=== PATIENT | male | born 1930 | race Two or more races ===

== ENCOUNTER 2021-03-23 21:16 | Inpatient (IN) | payer MEDICARE, OTHER ==
[~2021-03-23] VITALS: Ht 162.6 cm; Wt 72.6 kg
--- NOTE | 2021-03-23 21:20 | NUR ---
PT AAOX4. BIBRA 93 FROM HOME FOR C/O WORSENING SOB SINCE PM. PER EMS SATTING 88% ON RA, UPON TRIAGE, PT WAS PLACED ON CPAP. PT THEN WAS PLACED ON 6L NC, SAT 100%. NO ACUTE DISTRESS NOTED. LINE ESTABLISHED RAC 18G, BLOOD WORK COLLECTED, SENT TO LAB. AWAITING ORDERS.
[2021-03-23 21:43] LABS: BASOPHILS % (AUTO) 0.2 % (0.0-2.0); HEMATOCRIT 29 % (39-51); HEMOGLOBIN 8.9 g/dL (13.5-17.5); LYMPHOCYTES # (AUTO) 0.4 K/uL (0.8-4.8); MEAN CORPUSCULAR HGB CONC 30 g/dl (31.0-36.0); MEAN CORPUSCULAR VOLUME 76 fL (80-96); MONOCYTES # (AUTO) 1.1 K/uL (0.1-1.30); MONOCYTES % (AUTO) 4.8 % (2.0-12.0); NEUTROPHILS # (AUTO) 20.4 K/uL (1.8-8.9); PLATELET COUNT (AUTO) 270 K/uL (150-450); RED BLOOD CELL COUNT(AUTO) 3.85 MIL/uL (4.5-6.0)
[2021-03-23 21:53] LABS: CALCIUM, SERUM 8.2 mg/dL (8.5-10.1); CARBON DIOXIDE 30 mmol/L (21-32); CHLORIDE 100 mmol/L (98-107); CREATININE 1.8 mg/dL (0.6-1.3); GLUCOSE 153 mg/dL (74-106); POTASSIUM 4.3 mmol/L (3.5-5.1); SODIUM SERUM 136 mmol/L (136-145); UREA NITROGEN, BLOOD 22 mg/dL (7-18)
--- NOTE | 2021-03-23 22:08 | NUR ---
TROP 2.390
--- NOTE | 2021-03-23 22:19 | NUR ---
CALLED FOR COVID SWAB
--- NOTE | 2021-03-23 22:29 | NUR ---
[facility] SWAB COLLECTED AND SENT TO LAB. PATIENT'S BELONGINGS LIST DONE.
[2021-03-23] MEDS ORDERED: CEFEPIME 1 GM in IV D5W 50 ML IV ONE (22:30)
[2021-03-23] MEDS ORDERED: VANCOMYCIN 1 GM in IV D5W 250 ML IV ONE (22:30)
[2021-03-23] MEDS ORDERED: VANCOMYCIN 1 GM VIAL ONE (22:33)
[2021-03-23] MEDS ORDERED: CEFEPIME 1 GM VIAL ONE (22:33)
--- NOTE | 2021-03-23 22:37 | NUR ---
SPOKE TO PT, STATED HE IS UNABLE TO PROVIDE URINE SAMPLE AT THIS TIME.
--- NOTE | 2021-03-23 23:38 | NUR ---
SPOKE TO THE AND UPDATED HER REGARDING PT'D CONDITON AND ADMISSION STATUS
[2021-03-24 00:07] LABS: BAND % (MANUAL) 1 % (0.0-5.0); LYMPHOCYTES % (MANUAL) 3 % (16-48); METAMYELOCYTES % 1 % (0-0); NEUTROPHILS % (MANUAL) 95 (42-76)
[2021-03-24] MEDS ORDERED: MAGNESIUM HYDROXIDE 30 ML UDC PO PRN (00:30)
[2021-03-24] MEDS ORDERED: ONDANSETRON HCL/PF 4 MG/2 ML VIAL IVP PRN (00:30)
[2021-03-24] MEDS ORDERED: ACETAMINOPHEN 325 MG TABLET PO PRN (00:30)
[2021-03-24] MEDS ORDERED: MAG HYDROX/AL HYDROX/SIMETH 30 ML UDC PO PRN (00:30)
[2021-03-24] MEDS ORDERED: Z GUARD REMEDY 2 OZ OINT TP PRN (00:30)
[2021-03-24] MEDS ORDERED: ZOLPIDEM TARTRATE 5 MG TABLET PO PRN (00:30)
[2021-03-24] MEDS ORDERED: CEFTRIAXONE 1 G in IV D5W 50 ML IV SCH (01:00)
--- NOTE | 2021-03-24 02:07 | NUR ---
REPORT GIVEN TO YURIY ARZATE FOR KENNY
--- NOTE | 2021-03-24 02:40 | NUR ---
ADMIT NOTE RECEIVED PATIENT FROM ER, TRANSFERRED TO ROOM 116-1. PATIENT IS ALERT AND ORIENTED X3, ARABIC SPEAKING ONLY. ON O2 6L VIA NASAL CANNULA, O2 SAT 100%. NOTED WITH CONGESTION, CRACKLES HEARD UPON AUSCULTATION. DENIES ANY PAIN. SKIN ASSESSMENT DONE, NOTED WITH SACRUM REDNESS. IV ACCESS ON RIGHT AC #18, PATENT AND INTACT. ORIENTED PATIENT TO ROOM AND CALL LIGHT. BED LOCKED AND IN LOWEST POSITION. CALL LIGHT WITHIN REACH. ALL NEEDS ANTICIPATED.
--- NOTE | 2021-03-24 02:50 | NUR ---
PT TRANSFERED PER ACLS PROTOCOL
[2021-03-24 03:37] LABS: BASOPHILS % (AUTO) 0.2 % (0.0-2.0); HEMATOCRIT 27 % (39-51); HEMOGLOBIN 8.4 g/dL (13.5-17.5); LYMPHOCYTES # (AUTO) 0.4 K/uL (0.8-4.8); MEAN CORPUSCULAR HGB CONC 31 g/dl (31.0-36.0); MEAN CORPUSCULAR VOLUME 77 fL (80-96); MONOCYTES # (AUTO) 1.2 K/uL (0.1-1.30); MONOCYTES % (AUTO) 6.2 % (2.0-12.0); NEUTROPHILS # (AUTO) 18.2 K/uL (1.8-8.9); NEUTROPHILS % (AUTO) 91.6 % (43.0-81.0); PLATELET COUNT (AUTO) 235 K/uL (150-450); RED BLOOD CELL COUNT(AUTO) 3.54 MIL/uL (4.5-6.0); WHITE BLOOD COUNT (AUTO) 19.9 K/uL (4.3-11.0)
[2021-03-24 03:41] LABS: CARBON DIOXIDE 30 mmol/L (21-32); CHLORIDE 102 mmol/L (98-107); CREATININE 1.9 mg/dL (0.6-1.3); GLUCOSE 122 mg/dL (74-106); MAGNESIUM 2.2 mg/dL (1.8-2.4); PHOSPHORUS 4.1 mg/dL (2.5-4.9); POTASSIUM 4.6 mmol/L (3.5-5.1); SODIUM SERUM 138 mmol/L (136-145); UREA NITROGEN, BLOOD 25 mg/dL (7-18)
[2021-03-24 04:00] VITALS: BP 105/50
[2021-03-24] MEDS ORDERED: CEFTRIAXONE 1 G VIAL ONE (04:01)
--- NOTE | 2021-03-24 04:27 | NUR ---
RN NOTE RECEIVED CALL FROM LAB, TROPONIN LVL 3.813. SPOKE AND NOTIFIED DR. RASHEED SIMONS WITH NEW ORDERS NOTED AND CARRIED OUT.
[2021-03-24] MEDS ORDERED: ENOXAPARIN SODIUM 40 MG/0.4 ML DISP.SYRIN SQ ONE (04:30)
--- NOTE | 2021-03-24 06:56 | NUR ---
RN NOTE PATIENT IS RESTING IN BED. ON O2 6L VIA NASAL CANNULA, O2 SAT 97%. IV ACCESS ON RIGHT AC #18, PATENT AND INTACT. KEPT PATIENT CLEAN, DRY, AND COMFORTABLE. BED LOCKED AND IN LOWEST POSITION. CALL LIGHT WITHIN REACH. WILL ENDORSE TO AM SHIFT.
--- NOTE | 2021-03-24 07:39 | NUR ---
RN MORNING NOTE PT RECEIVED IN BED WITH HOB ELEVATED TO 30 DEGREES. PT IS ON 6L NC SATING 100% WITH NO SIGNS OF LABORED BREATHING OR RESPIRATORY DISTRESS. PT IS A/OX3. PT IS SR WITH OCC PVCS AND ON MONITOR. R AC #18 IS PATENT AND INTACT WITH NO SIGNS OF INFILTRATION. BED IS LOCKED IN LOWEST POSITION X2 GUARD RAILS UP, CALL LEON WITHIN REACH, AND ALL HOSPITAL SAFETY PRECAUTIONS ARE IN PLACE. WILL CONTINUE TO MONITOR THROUGHOUT SHIFT.
[2021-03-24 08:00] VITALS: BP 113/52
[2021-03-24] MEDS ORDERED: FUROSEMIDE 40 MG/4 ML VIAL IV SCH (09:00)
[2021-03-24] MEDS ORDERED: AZITHROMYCIN 500 MG in IV D5W 250 ML IV ONE (09:00)
[2021-03-24] MEDS: FUROSEMIDE 40 MG/4 ML VIAL IV SCH ×3 (09:08→17:21)
--- NOTE | 2021-03-24 10:11 | NUR ---
RN NOTE PER PHARMACY ROUND UP INITIAL DOSE AND STARTING RATE. CHANGED ON DOCUMENTATION. WITNESSED BY CHARGE NURSE.
[2021-03-24] MEDS ORDERED: HEPARIN SODIUM, PORCINE 5000 UNITS/1 ML VIAL IV ONE (10:30)
[2021-03-24 10:43] LABS: THYROID STIMULATING HORMONE 0.856 uIU/mL (0.358-3.74)
[2021-03-24] MEDS: HEPARIN INFUSION/D5W 500 ML IV PRN (11:14)
[2021-03-24] MEDS ORDERED: DULA1.5P SQ (11:24)
[2021-03-24] MEDS ORDERED: SIMV-49 PO (11:24)
[2021-03-24] MEDS ORDERED: EMPA25TA PO (11:24)
[2021-03-24] MEDS ORDERED: FURO40TA5 PO (11:24)
[2021-03-24] MEDS ORDERED: CHOL100062 PO (11:25)
[2021-03-24] MEDS ORDERED: ESCI10TA PO (11:25)
[2021-03-24] MEDS ORDERED: CLOP75TA15 PO (11:25)
[2021-03-24] MEDS ORDERED: TAMS-12 PO (11:25)
[2021-03-24] MEDS ORDERED: NILO150C PO (11:25)
[2021-03-24] MEDS ORDERED: METO25TA4 PO (11:25)
[2021-03-24] MEDS ORDERED: LINA290C PO (11:25)
[2021-03-24] MEDS ORDERED: AMLO2.5T4 PO (11:25)
[2021-03-24 12:00] VITALS: BP 102/63
[2021-03-24] MEDS: BLOOD SUGAR DIAGNOSTIC 1 EACH STRIP IN SCH ×3 (12:00→22:33)
[2021-03-24] MEDS ORDERED: DEXTROSE 50%-WATER 50 ML DISP.SYRIN IV PRN (12:00)
[2021-03-24] MEDS: INSULIN REGULAR, HUMAN 100 UNIT/ML 3 ML VIAL SQ PRN ×3 (13:05→22:44)
--- NOTE | 2021-03-24 13:06 | NUR ---
RN NOTE BLOOD SUGAR TAKEN WITH RESULTS OF 123. NO INSULIN NEEDED PER SLIDING SCALE. WILL CONTINUE TO MONITOR.
[2021-03-24] MEDS: [UNRECOGNIZED DRUG - OTHER] PO SCH ×2 (14:30→22:33)
[2021-03-24] MEDS: LINZESS 290 MCG PO SCH (14:30)
[2021-03-24 16:00] VITALS: BP 118/46
[2021-03-24] MEDS: SIMVASTATIN 20 MG TABLET PO SCH (17:21)
[2021-03-24] MEDS: TAMSULOSIN 0.4 MG CAP.SR.24H PO SCH (17:21)
--- NOTE | 2021-03-24 17:37 | NUR ---
RN NOTE BLOOD SUGAR TAKEN WITH RESULTS OF 119. NO INSULIN NEEDED PER SLIDING SCALE. WILL CONTINUE TO MONITOR.
--- NOTE | 2021-03-24 18:00 | NUR ---
RN NOTES; PTT REPORTED BY LABS TO BE 87. PER PROTOCAL HOLD HEPARIN INFUSION FOR 30MIN AND DECREASE RATE BY 150UNITS. NEW RATE WILL BE 1000U/HR to be restarted at 1830. WILL CONTINUE TO MONITOR.
--- NOTE | 2021-03-24 18:32 | NUR ---
RN CLOSING NOTE PT IS LYING IN BED WITH HOB ELEVATED TO 30 DEGREES. PT IS ON 6L NC SATING 98% WITH NO SIGNS OF LABORED BREATHING OR RESPIRATORY DISTRESS. PT IS A/OX3. PT IS SR WITH OCC PVCS AND ON MONITOR. R AC #18, GUERO 18G MIDLINE, IS PATENT AND INTACT WITH NO SIGNS OF INFILTRATION. PATIENT ON HEP DRIP AT 1,000 UNITS/HR 20ML/HR. PTT ORDERED FOR 03/25/21 0030. BED IS LOCKED IN LOWEST POSITION X2 GUARD RAILS UP, CALL LEON WITHIN REACH, AND ALL HOSPITAL SAFETY PRECAUTIONS ARE IN PLACE. WILL ENDORSE TO BRANCH LIBRARY CLERK NURSE FOR KENNY.
--- NOTE | 2021-03-24 19:30 | NUR ---
RN NOTE RECEIVED PATIENT IN BED. A/OX3, FARSI SPEAKING, ABLE TO MAKE BASIC NEEDS KNOWN. ON OXYGEN 6L/MIN VIA NASAL CANNULA. RESPIRATIONS ARE EVEN AND UNLABORED . NO S/S SOB NOTED. NO C/O PAIN. EXTERNAL TELE MONITOR READS SINUS RHYTHM. IN NO APPARENT DISTRESS. IV ACCESS IN RAC#18 AND GUERO MIDLINE RUNNING HEPARIN 1000 UNITS. BED IS LOW AND LOCKED, HOB ELEVATED IN SEMI FOWLERS, SIDE RAILS UP X2, CALL LIGHT WITHIN REACH.
[2021-03-24 19:35] LABS: BILIRUBIN,URINE NEGATIVE (NEGATIVE); COLOR,URINE YELLOW (YELLOW); LEUKOCYTE ESTERASE ,URINE NEGATIVE (NEGATIVE); NITRITE, URINE NEGATIVE (NEGATIVE); PROTEIN,URINE TRACE mg/dl (NEGATIVE); UGLUCOSE >=1000 mg/dL (NEGATIVE); UROBILINOGEN,URINE 0.2 EU/dL (0.2)
[2021-03-24 19:52] LABS: BACTERIA,URINE Rare /HPF (None Seen); HYALINE CASTS, URINE Few /LPF (None Seen); RBC,URINE 0-2 /HPF (0-2); SQUAMOUS EPITHELIAL CELL,UR Few /HPF (None Seen); WBC,URINE 0-2 /HPF (0-3)
[2021-03-24 19:56] LABS: CREATININE, URINE 71.7 MG/DL (30.0-125.0); URINE TOTAL PROTEIN 46.4 mg/dL (0-11.9)
[2021-03-24 20:00] VITALS: BP 109/54
[2021-03-24] MEDS: DOXYCYCLINE HYCLATE (100 MG) 100 MG TABLET PO SCH (22:33)
[2021-03-24] MEDS: CEFEPIME 1 GM in IV D5W 50 ML IV SCH (22:53)
--- NOTE | 2021-03-24 23:38 | NUR ---
RN NOTE INFORMED CHILD CARE SPECIALIST DR. MOHAMUD PATIENT REMOVED BOTH IV SITES. PATIENT IS ON A HEPARIN DRIP. OBTAINED TELEPHONE ORDER FOR BILATERAL SOFT WRIST RESTRAINTS. ORDER READ BACK NOTED AND CARRIED OUT.
[2021-03-25 04:00] VITALS: BP 106/46
--- NOTE | 2021-03-25 04:37 | NUR ---
RN NOTES, INFORMED DOCTOR ESTHELA THAT PATIENT SOUNDS CONGESTED WITH CRACKLES UPON AUSCULTATION, IF IS OK TO GIVE THE BLOOD HE ORDERED, AND PER HIM TO HOLD THE BLOOD FOR NOW AND GIVE LASIX 40MG IV ONCE, ORDER NOTED AND CARRIED OUT. Addendum: 03/25/21 at 1704 by RICARDA VELEZ RN WRONG TIME DOCUMENTATION
--- NOTE | 2021-03-25 06:21 | NUR ---
RN NOTE PATIENT RESTING IN BED. ATTENDED BASIC NEEDS. REMAINS ON OXYGEN 6L/MIN VIA NASAL CANNULA. NO PAIN. TELE MONITOR READS SINUS RHYTHM. LFA#20 RUNNING HEPARIN 1000 UNITS, RAC #20 SALINE LOCKED. BED REMAINS LOW AND LOCKED, HOB ELEVATED IN SEMI FOWLERS, SIDE RAILS UP X2, CALL LIGHT WITHIN REACH. WILL ENDORSE TO NEXT SHIFT.
[2021-03-25 06:45] LABS: BASOPHILS % (AUTO) 0.2 % (0.0-2.0); HEMATOCRIT 25 % (39-51); HEMOGLOBIN 7.8 g/dL (13.5-17.5); LYMPHOCYTES # (AUTO) 0.2 K/uL (0.8-4.8); LYMPHOCYTES % (AUTO) 0.8 % (20.0-44.0); MEAN CORPUSCULAR HGB CONC 31 g/dl (31.0-36.0); MEAN CORPUSCULAR VOLUME 78 fL (80-96); MONOCYTES # (AUTO) 1.1 K/uL (0.1-1.30); MONOCYTES % (AUTO) 5.7 % (2.0-12.0); NEUTROPHILS # (AUTO) 17.7 K/uL (1.8-8.9); NEUTROPHILS % (AUTO) 93.3 % (43.0-81.0); PLATELET COUNT (AUTO) 183 K/uL (150-450); RED BLOOD CELL COUNT(AUTO) 3.22 MIL/uL (4.5-6.0)
[2021-03-25 06:56] LABS: ALANINE AMINOTRANSFERASE 18 U/L (12-78); ALBUMIN 2.5 g/dL (3.4-5.0); ALKALINE PHOSPHATASE 76 U/L (46-116); ASPARTATE AMINOTRANSFERASE 37 U/L (15-37); BILIRUBIN,TOTAL 0.3 mg/dL (0.2-1.0); CALCIUM, SERUM 7.7 mg/dL (8.5-10.1); CARBON DIOXIDE 30 mmol/L (21-32); CHLORIDE 95 mmol/L (98-107); CREATININE 2.3 mg/dL (0.6-1.3); GLUCOSE 255 mg/dL (74-106); MAGNESIUM 2.5 mg/dL (1.8-2.4); POTASSIUM 4.3 mmol/L (3.5-5.1); SODIUM SERUM 136 mmol/L (136-145); UREA NITROGEN, BLOOD 40 mg/dL (7-18)
[2021-03-25] MEDS: BLOOD SUGAR DIAGNOSTIC 1 EACH STRIP IN SCH ×4 (07:52→21:41)
--- NOTE | 2021-03-25 08:03 | NUR ---
NURSE OPENING NOTE. RECEIVE REPORT FROM SECURE SOFTWARE ASSESSOR NURSE. PATIENT A/O X3. PATIENT AMBULATORY WITH ASSISTANCE. PULL OUT IV LAST NIGHT. WILL FOLLOW UP URINE CULTURE AND BLOOD CULTURE. PATIENT IS ON HEPARIN DRIPS. AFETY MEASURE IN PLACE. BED ON THE LOWEST POSITION WITH HOB ELEVATED. CALL LIGHT WITHIN REACH. WILL CONTINUE TO MONITOR.
[2021-03-25 09:29] VITALS: BP 112/45
[2021-03-25] MEDS: CEFEPIME 1 GM in IV D5W 50 ML IV SCH ×2 (09:31→20:51)
[2021-03-25] MEDS: LINZESS 290 MCG PO SCH (09:32)
[2021-03-25] MEDS: DOXYCYCLINE HYCLATE (100 MG) 100 MG TABLET PO SCH ×2 (09:32→21:29)
[2021-03-25] MEDS: TAMSULOSIN 0.4 MG CAP.SR.24H PO SCH ×2 (09:32→17:23)
[2021-03-25] MEDS: CHOLECALCIFEROL 1,000 UNIT TABLET (VIT D3) PO SCH (09:32)
[2021-03-25] MEDS: ESCITALOPRAM OXALATE (10 MG) 10 MG TABLET PO SCH (09:32)
[2021-03-25] MEDS: AZITHROMYCIN 250 MG TABLET PO SCH (09:32)
[2021-03-25] MEDS: CLOPIDOGREL BISULFATE 75 MG TABLET PO SCH (09:32)
[2021-03-25] MEDS: AMLODIPINE BESYLATE 2.5 MG TABLET PO SCH (09:33)
[2021-03-25] MEDS: METOPROLOL SUCCINATE 25 MG TAB.SR.24H PO SCH (09:33)
[2021-03-25] MEDS: INSULIN REGULAR, HUMAN 100 UNIT/ML 3 ML VIAL SQ PRN ×4 (09:38→21:43)
--- NOTE | 2021-03-25 09:52 | NUR ---
REDRAW RESULT PTT 41.7 INCREASED RATE BY 150 UNITS PER PROTOCOL,NEW RATE 1150 UNITS/HR PER BRAD FABRIC PATTERN GRADER.
--- NOTE | 2021-03-25 10:00 | NUR ---
RN NOTES, PATIENT ENDORSED FROM LALITA ARZATE FOR CONTINUATION OF CARE, PATIENT ON HEPARIN DRIP, JUST STARTED AT THIS TIME AFTER APTT RESULTS, PATIENT A/O TO SELF, NO DISTRESS NOTED AT THIS TIME, ON BILATERAL SOFT WRIST RESTRAINS, NO ABNORMALITY NOTED AT SITE, NO CIRCULATION COMPROMISED.
--- NOTE | 2021-03-25 10:05 | NUR ---
PER PHARMACIST MICKIE KEEP ON SAME RATE 1000UNITS SINCE REDRAW OF PTT WAS DONE WHLE HEPARIN ON HOLD.CURRENT RATE NOW OF HEPARIN 1000UNITS/HOUR BRAD SENIOR SEARCH MARKETING ANALYST MADE AWARE.
--- NOTE | 2021-03-25 11:01 | NUR ---
RN NOTES, NOTED PATIENT COUGHING WHILE EATING, SWALLOW EVAL PLACED, PER SPEECH THERAPIST WILL PUT PATIENT ON PUREED DIET FOR NOW, SHE WILL ASSESS PATIENT TOMORROW, STRICT ASPIRATION PRECAUTIONS, WILL CONTINUE TO MONITOR CLOSELY.
--- NOTE | 2021-03-25 11:30 | NUR ---
SPOKE WITH SON FOR UPDATE, PER SON HE IS VERY CONCERNED BECAUSE HIS DAD HAD A CONDITION ABOUT 2 YEARS AGO WHERE HE HAD FLUID IN THE CARDIAC CAVITY, AND HE THINKS THAT HIS DAD HAS THE SAME CONDITION AGAIN, INFORMED BRAD AND THAT SON WANTS TO TALK TO HIM, PER BRAD DIOR, HE WILL CALL THE SON
[2021-03-25] MEDS: [UNRECOGNIZED DRUG - OTHER] PO SCH ×2 (11:43→21:29)
[2021-03-25 12:00] VITALS: BP 112/52
[2021-03-25] MEDS: HEPARIN INFUSION/D5W 500 ML IV PRN (12:41)
[2021-03-25 16:00] VITALS: BP 106/43
--- NOTE | 2021-03-25 16:37 | NUR ---
RN NOTES, INFORMED DOCTOR ESTHELA THAT PATIENT SOUNDS CONGESTED WITH CRACKLES UPON AUSCULTATION, IF IS OK TO GIVE THE BLOOD HE ORDERED, AND PER HIM TO HOLD THE BLOOD FOR NOW AND GIVE LASIX 40MG IV ONCE, AND GET ADVICE FROM MANAGER STERILE, ORDER NOTED AND CARRIED OUT.
--- NOTE | 2021-03-25 16:49 | NUR ---
RN NOTES, INFORMED DR GARNER THAT PER SCAN PATIENT IS RETAINING 400ML OF URINE, AND INFORMED THAT PER DR PROCTOR ORDERS TO HOLD BLOOD, GIVE LASIX, AND GET NEPHRO ADVICE PER PASCUAL INSERT CAMPBELL AND GIVE LASIX 40MG IV ONCE, ALL ORDERS NOTED AND CARRIED OUT.
[2021-03-25] MEDS ORDERED: FUROSEMIDE 40 MG/4 ML VIAL IV ONE (17:00)
--- NOTE | 2021-03-25 17:11 | NUR ---
PTT 43.9 INCREASE BY 150 UNITS PER PROTOCOL,NEW RATE 1150 UNITS /HR,PHARMACIST MADE AWARE.
[2021-03-25] MEDS: CALCIUM ACETATE 667 MG CAP/TAB PO SCH (17:23)
[2021-03-25] MEDS: SIMVASTATIN 20 MG TABLET PO SCH (17:23)
--- NOTE | 2021-03-25 18:55 | NUR ---
RN NOTES CAMPBELL INSERTED PER ORDER OF DR. GARNER. INITIAL OUTPUT: 600ML
[2021-03-25] MEDS ORDERED: NS 0.9% IV PRN (19:00)
[2021-03-25] MEDS ORDERED: FUROSEMIDE IV PRN (19:00)
--- NOTE | 2021-03-25 19:30 | NUR ---
RN OPENING NOTE RECEIVED PATIENT IN BED. A/OX3, FARSI SPEAKING, LANGUAGE BARRIER. ON OXYGEN 6L/MIN VIA NASAL CANNULA. RESPIRATION ARE SLIGHTLY LABORED. NO S/S PAIN NOTED. EXTERNAL TELE MONITOR READS SINUS RHYTHM. IV ACCESS IN BARTOLO MIDLINE, LFA#20 RUNNING HEPARIN @1150UNITS/HR. RAC#20 SALINE LOCKED. CAMPBELL CATHETER IS PRESENT, DRAINING TO GRAVITY. BILATERAL SOFT WRIST RESTRAINTS, NO REDNESS, GOOD CAP REFILL. BED IS LOW AND LOCKED, HOB ELEVATED IN HIGH FOWLERS, SIDE RIAL SUP X2, CALL LIGHT WITHIN REACH.
--- NOTE | 2021-03-25 19:37 | NUR ---
RN CLOSING NOTE PT LYING IN BED. PT A/O X3. PT HAS SOFT WRIST RESTRAINTS. BARTOLO MIDLINE 18G INSERTED TODAY. PT IS ON HEPARIN DRIP INFUSING INTO MIDLINE. PRBC HELD PER DR. PROCTOR. PER DR. GARNER ONE TIME 40MG LASIX GIVEN AND CAMPBELL INSERTED. APTT CHECK SCHEDULED FOR 2300. SAFETY MEASURE IN PLACE. BED ON THE LOWEST POSITION WITH HOB ELEVATED HIGH FOWLERS. CALL LIGHT WITHIN REACH. WILL ENDORSE TO LIGHTNING ROD INSTALLER NURSE FOR CONTINUITY OF CARE.
--- NOTE | 2021-03-25 19:46 | NUR ---
RN NOTE CALLED SON BRAD [phone] TO INFORM HIM THAT PHARMACY IS REQUESTING HOME MEDS TO BE DELIVERED, TASINGA AND LINESS. SON STATED HE WILL BRING TOMORROW MORNING. SON ALSO ASKED ABOUT VISITING HOURS AND INFORMED HIM THE PRC IS STILL PENDING.
[2021-03-25 20:00] VITALS: BP 100/44
[2021-03-25] MEDS ORDERED: FUROSEMIDE 100 MG in IV NS 0.9% 90 ML IV PRN (20:00)
--- NOTE | 2021-03-25 20:23 | NUR ---
RN NOTE RECEIVED A CALL FROM DAUGHTER, GAVE AN UPDATE. FAMILY REQUEST PHONE IN ROOM. WILL PLACE PHONE IN ROOM, WILL TRY TO CALL IN 2 HOURS. DAUGHTER ASKED ABOUT VISITING, INFORMED HER THE PCR IS STILL PENDING.
--- NOTE | 2021-03-25 23:30 | NUR ---
RN NOTE NURSE OBGYN AT BEDSIDE TO OBTAIN PTT, STATES PATIENT IS A HARD STICK. UNABLE TO GET BLOOD. STATES SHE IS THE ONLY NURSE OBGYN AT THIS TIME. ASKED TO MATERIALS TO DRAW BLOOD. CHARGE NURSE INFORMED.
[2021-03-26] VITALS (17 sets, daily range): BP systolic 81–121; BP diastolic 34–71
--- NOTE | 2021-03-26 | NUR ---
RN NOTE AT BEDSIDE WITH CHARGE NURSE ZEHRA TO DRAW PTT. BLOOD TAKEN TO LAB, AWAITING RESULTS.
--- NOTE | 2021-03-26 01:00 | NUR ---
RN NOTE PTT IS 37.9. PER WEIGHT BASED HEPARIN DOSING ORDER FOR ACUTE CORONARY SYNDROME / AMI FORM,INCREASE BY 150 UNITS PER HOUR. DOSE NOW 1300UNITS PER HOUR. WILL REASSESS PTT IN 6 HOURS.
--- NOTE | 2021-03-26 06:21 | NUR ---
RN CLOSING NOTE PATIENT RESTING IN BED. BASIC NEEDS MET. REMAINS ON OXYGEN 6L/MIN VIA NASAL CANNULA. EPISODES OF SOB. TELE MONITOR IS SINUS RHYTHM. BARTOLO MIDLINE RUNNING LASIX @5MG/HR, LFA#20 RUNNING HEPARIN @1150UNITS/HR. RAC#20 AND RIGHT WRIST#20 SALINE LOCKED. CAMPBELL CATHETER DRAINING TO GRAVITY, URINE IS YELLOW OUTPUT 650ML. BILATERAL SOFT WRIST RESTRAINTS MAINTAINED, NO REDNESS. BED REMAINS LOW AND LOCKED, HOB ELEVATED IN HIGH FOWLERS, SIDE RIALS UP X2, CALL LIGHT WITHIN REACH. WILL ENDORSE TO ONCOMING SHIFT.
--- NOTE | 2021-03-26 07:35 | NUR ---
MILITARY LAWYER NOTE RECEIVED PT IN BED ON 6L NC, HEPARIN RUNNING AT 1150UNITS/HR IN THE L FA 20G, LASIX @5MG/HR IN THE BARTOLO ML. PT ALSO HAS A R AC 20 G SALINE LOCK, FLUSHED PATENT WITH DRESSING IN TACT. PTS R FA 20 G IS OCCLUDED. WILL REMOVE AND COVER WITH DRY DRESSING. PT HAS SOFT WRIST RESTRAINTS TO REFRAIN FROM PULLING LINES AND REMOVING OXYGEN. SAFETY MEASURES IN PLACE WITH BED IN LOWEST LOCKED POSITION, CALL LIGHT WITHIN REACH AND BED ALARM ON.
[2021-03-26] MEDS: BLOOD SUGAR DIAGNOSTIC 1 EACH STRIP IN SCH ×4 (07:41→22:16)
[2021-03-26] MEDS: CALCIUM ACETATE 667 MG CAP/TAB PO SCH ×3 (07:42→18:00)
[2021-03-26] MEDS: INSULIN REGULAR, HUMAN 100 UNIT/ML 3 ML VIAL SQ PRN ×4 (07:46→22:24)
[2021-03-26 07:54] LABS: CALCIUM, SERUM 8.2 mg/dL (8.5-10.1); CARBON DIOXIDE 23 mmol/L (21-32); CHLORIDE 96 mmol/L (98-107); CREATININE 3.1 mg/dL (0.6-1.3); GLUCOSE 151 mg/dL (74-106); POTASSIUM 4.4 mmol/L (3.5-5.1); SODIUM SERUM 134 mmol/L (136-145); UREA NITROGEN, BLOOD 65 mg/dL (7-18)
--- NOTE | 2021-03-26 08:30 | NUR ---
SILVER MINER NOTE PT EVALUATED BY SPEECH THERAPY, NOTING SOME DIFFICULTY SWALLOWING THIN LIQUIDS WELL TROUBLE CLEARING SECRETIONS. ASPIRATION PRECAUTIONS OBSERVED, KEEPING HOB ELEVATED HIGH TOLERATED DURING MEALS AND MEDICATION ADMINISTRATION.
[2021-03-26 08:36] LABS: BASOPHILS % (AUTO) 0.1 % (0.0-2.0); HEMATOCRIT 24 % (39-51); HEMOGLOBIN 7.3 g/dL (13.5-17.5); LYMPHOCYTES # (AUTO) 0.9 K/uL (0.8-4.8); LYMPHOCYTES % (AUTO) 6.4 % (20.0-44.0); MEAN CORPUSCULAR HGB CONC 31 g/dl (31.0-36.0); MEAN CORPUSCULAR VOLUME 77 fL (80-96); MONOCYTES # (AUTO) 0.7 K/uL (0.1-1.30); MONOCYTES % (AUTO) 5.1 % (2.0-12.0); NEUTROPHILS # (AUTO) 12.4 K/uL (1.8-8.9); NEUTROPHILS % (AUTO) 88.4 % (43.0-81.0); PLATELET COUNT (AUTO) 169 K/uL (150-450); RED BLOOD CELL COUNT(AUTO) 3.09 MIL/uL (4.5-6.0)
[2021-03-26] MEDS: LINZESS 290 MCG PO SCH (08:52)
[2021-03-26] MEDS: DOXYCYCLINE HYCLATE (100 MG) 100 MG TABLET PO SCH ×2 (08:53→21:00)
[2021-03-26] MEDS: AZITHROMYCIN 250 MG TABLET PO SCH (08:53)
[2021-03-26] MEDS: ESCITALOPRAM OXALATE (10 MG) 10 MG TABLET PO SCH (08:53)
[2021-03-26] MEDS: METOPROLOL SUCCINATE 25 MG TAB.SR.24H PO SCH (08:53)
[2021-03-26] MEDS: CLOPIDOGREL BISULFATE 75 MG TABLET PO SCH (08:53)
[2021-03-26] MEDS: TAMSULOSIN 0.4 MG CAP.SR.24H PO SCH ×2 (08:53→18:00)
[2021-03-26] MEDS: CEFEPIME 1 GM in IV D5W 50 ML IV SCH (08:53)
[2021-03-26] MEDS: CHOLECALCIFEROL 1,000 UNIT TABLET (VIT D3) PO SCH (08:53)
[2021-03-26] MEDS: AMLODIPINE BESYLATE 2.5 MG TABLET PO SCH (08:54)
[2021-03-26] MEDS: HEPARIN INFUSION/D5W 500 ML IV PRN ×2 (09:55→12:03)
[2021-03-26] MEDS: [UNRECOGNIZED DRUG - OTHER] PO SCH ×2 (11:00→21:00)
[2021-03-26] MEDS: ENSURE ENLIVE 237 ML LIQUID (VANILLA) PO SCH ×2 (12:42→17:55)
--- NOTE | 2021-03-26 14:55 | NUR ---
RN NOTE PT RESTLESS AND TRYING TO GET OUT OF BED. PT ON SOFT WRIST RESTRAINTS. ATTEMPTED TO REORIENT TO SITUATION. PT O2 SATURATION DECLINED TO 72%. PLACED PT ON NON-REBREATHER AT 15LPM. PAGED RT AND NOTIFIED DISTILLER.
--- NOTE | 2021-03-26 15:20 | NUR ---
RN NOTE PT O2 SATURATION IMPROVING TO 90% HOWEVER BP REMAINS LOW AT 86/37. LOBBY ATTENDANT SAW PT AT THE BEDSIDE AND MADE CLINICAL DECISION TO UPGRADE TO ICU. WILL GIVE REPORT TO ICU NURSE FOR CONTINUITY OF CARE.
--- NOTE | 2021-03-26 15:35 | NUR ---
MAGNAFLUX OPERATOR NOTES RECEIVED PT FROM [place]. AWAKE, LETHARGIC. ON 15L O2 VIA NRB MASK, O2 SAT @100%. WITH ONGOING PRBC @100ML/HR, BAG AT 150MLS REMAINING. HEPARIN DRIP @1300 UNITS/HR. BARTOLO MIDLINE AND LFA #20 BOTH INTACT AND FLUSHED. NO PAIN REPORTED AT THIS TIME. CONNECTED TO THE MONITOR, READING SR. CAMPBELL CATH IN PLACE, DRAINING MAURICIO COLORED URINE. SAFETY MEASURES IN PLACE. BED LOCKED AND IN LOWEST POSITION WITH SIDE RAILS UP X3. WILL CONTINUE TO MONITOR.
[2021-03-26 16:02] LABS: ABG OXYGEN SATURATION 99.1 % (92.0-98.5); ABG PCO2 64.6 mmHg (35.0-45.0); ABG PH 7.236 (7.350-7.450); ABG PO2 198.2 mmHg (75.0-100.0); AaDO2 304.4 mmHg; COHb 0.5 % (0.5-1.5); MetHb 0.3 % (0.0-1.5); O2Hb 98.3 % (94.0-97.0); SITE, ABG Left Radial; VENT MODE, BG NRB MASK
--- NOTE | 2021-03-26 16:30 | NUR ---
RN NOTES ABG DONE. PER DR. JERRY PLACE PT ON BIPAP. PT UNABLE TO TOLERATE. PT STILL AWAKE AND ALERT. PLACED ON 2L O2 VIA NC. POST ABG @1800. DR. JERRY AWARE.
--- NOTE | 2021-03-26 16:36 | NUR ---
RT PATIENT AWAKE/ALERT. POST ABG, PATIENT PLACED ON [address] JERRY AND DARREN HU RN AWARE. ABG ORDER AT 1815. MONITORING THE PATIENT CLOSELY FOR ANY CHANGES.
--- NOTE | 2021-03-26 17:30 | NUR ---
RN NOTES BS OF 126, NO INSULIN COVERAGE.
[2021-03-26] MEDS: SIMVASTATIN 20 MG TABLET PO SCH (18:00)
[2021-03-26 18:19] LABS: ABG OXYGEN SATURATION 87.8 % (92.0-98.5); ABG PCO2 59.4 mmHg (35.0-45.0); ABG PH 7.265 (7.350-7.450); ABG PO2 60.2 mmHg (75.0-100.0); AaDO2 69.4 mmHg; COHb 0.8 % (0.5-1.5); O2Hb 87.1 % (94.0-97.0); SITE, ABG Left Radial; VENT MODE, BG 2L NC
--- NOTE | 2021-03-26 18:25 | NUR ---
RT POST ABG RESULTS SHOWN TO DARREN HU RN. PLACED PT ON BIPAP PER MD ORDER. BIPAP SETTINGS: ST 18/6, BUR 24, 50% O2. KENNEDY ARZATE AWARE. WILL CONTINUE TO MONITOR THE PATIENT FOR ANY CHANGES.
--- NOTE | 2021-03-26 19:20 | NUR ---
RN NOTES NO SIGNIFICANT CHANGES THROUGHOUT THE SHIFT. ON BIPAP, TOLERATING SETTINGS WELL. ALL DUE MEDS GIVEN. NEEDS ATTENDED. KEPT CLEAN AND COMFORTABLE. SAFETY MEASURES IN PLACE. SEIZURE PRECAUTION. ENDORSED TO NIGHT RN FOR KENNY.
--- NOTE | 2021-03-26 20:07 | NUR ---
RECEIVED PT ON BIPAP 31/10, 24, 50%. PT TOLERATING SETTINGS. ALARMS SET AND AUDIBLE. CONTINUE TO MONITOR. Addendum: 03/26/21 at 2008 by JR SOLIMAN RT Amended: Links added.
--- NOTE | 2021-03-26 20:45 | NUR ---
ABG DONE, RN NOTIFIED WITH THE RESULT.
[2021-03-26 20:46] LABS: ABG BASE EXCESS -2.5 mmol/L; ABG PCO2 61.6 mmHg (35.0-45.0); ABG PH 7.246 (7.350-7.450); ABG PO2 150.7 mmHg (75.0-100.0); SITE, ABG Left Radial; VENT MODE, BG ST 18/6 R24 50%
--- NOTE | 2021-03-26 20:57 | NUR ---
FIO2 TITRATED. RN NOTIFIED.
--- NOTE | 2021-03-26 21:11 | NUR ---
ICU/FLASH RANGING CREWMEMBER ABG RESULTS RELAYED TO DR. MOHAMUD. NEW ORDERS TO INCREASE IPAP TO 20 AND REPEAT ABG IN 1 HOUR.
--- NOTE | 2021-03-26 21:17 | NUR ---
IPAP CHANGED TO [address] MOHAMUD.
[2021-03-26] MEDS: CEFEPIME 2 GM in IV D5W 100 ML IV SCH (21:23)
[2021-03-26 23:29] LABS: ABG BASE EXCESS -1.1 mmol/L; ABG OXYGEN SATURATION 97.3 % (92.0-98.5); ABG PCO2 53.9 mmHg (35.0-45.0); ABG PH 7.295 (7.350-7.450); ABG PO2 103.3 mmHg (75.0-100.0); AaDO2 47.3 mmHg; COHb 0.8 % (0.5-1.5); MetHb 0.3 % (0.0-1.5); O2Hb 96.2 % (94.0-97.0); SITE, ABG Left Radial
--- NOTE | 2021-03-26 23:44 | NUR ---
ICU/SEARCH ENGINE OPTIMIZATION STRATEGIST POST BIPAP CHANGE ABG RESULTS RELAYED TO ONEIDA NGUYEN. ORDERS TO REPEAT ABG IN AM AND HAVE AM SHIFT FOLLOW UP WITH PULMONARY.
--- NOTE | 2021-03-26 23:45 | NUR ---
ABG DONE. RN NOTIFIED.
[2021-03-27] VITALS (30 sets, daily range): BP systolic 96–136; BP diastolic 47–71
[2021-03-27 04:42] LABS: EOSINOPHILS % (AUTO) 0.1 % (0.0-6.0); HEMATOCRIT 25 % (39-51); HEMOGLOBIN 7.8 g/dL (13.5-17.5); LYMPHOCYTES # (AUTO) 0.4 K/uL (0.8-4.8); LYMPHOCYTES % (AUTO) 3.7 % (20.0-44.0); MEAN CORPUSCULAR HGB CONC 31 g/dl (31.0-36.0); MEAN CORPUSCULAR VOLUME 77 fL (80-96); MONOCYTES # (AUTO) 0.8 K/uL (0.1-1.30); MONOCYTES % (AUTO) 6.7 % (2.0-12.0); NEUTROPHILS # (AUTO) 10.6 K/uL (1.8-8.9); NEUTROPHILS % (AUTO) 89.5 % (43.0-81.0); PLATELET COUNT (AUTO) 150 K/uL (150-450); RED BLOOD CELL COUNT(AUTO) 3.27 MIL/uL (4.5-6.0); WHITE BLOOD COUNT (AUTO) 11.9 K/uL (4.3-11.0)
[2021-03-27] MEDS: HEPARIN INFUSION/D5W 500 ML IV PRN ×2 (04:48→23:29)
[2021-03-27 04:52] LABS: CALCIUM, SERUM 8.1 mg/dL (8.5-10.1); CARBON DIOXIDE 28 mmol/L (21-32); CHLORIDE 97 mmol/L (98-107); CREATININE 3.4 mg/dL (0.6-1.3); GLUCOSE 117 mg/dL (74-106); POTASSIUM 4.2 mmol/L (3.5-5.1); SODIUM SERUM 135 mmol/L (136-145); UREA NITROGEN, BLOOD 73 mg/dL (7-18)
--- NOTE | 2021-03-27 07:30 | NUR ---
RN NOTE RECIEVED PATIENT IN BED, WITH BIPAP 20/8. RATE OF 24, FiO2 OF 30% TOLERATING WELL, ON TELE MONITOR SR AT THIS TIME, BILATERAL SOFT WRIST RESTRAINTS NOTED, SKIN INTACT UPON ASSESSMENT, LEFT UPPER ARM MIDLINE NOTED WITH HEPARIN 1300UNITS/HR RUNNING PER PROTOCOL ORDERED, APTT OF 47 NO CHANGE. NO BLEEDING NOTED, ON CAMPBELL CATHETER DRAINING WELL, WILL CONTINUE TO MONITOR, SAFETY MEASURES OBSERVED, CALL LIGHT WITHIN REACH, BED WHEELS LOCK.
--- NOTE | 2021-03-27 08:00 | NUR ---
OFF BIPAP ONTO 1LPM N/C ZERO SOB NOTED. RN AWARE
[2021-03-27 08:26] LABS: ALANINE AMINOTRANSFERASE 25 U/L (12-78); ALBUMIN 2.4 g/dL (3.4-5.0); ALKALINE PHOSPHATASE 101 U/L (46-116); ASPARTATE AMINOTRANSFERASE 31 U/L (15-37); BILIRUBIN,DIRECT 0.2 mg/dL (0.0-0.2); BILIRUBIN,TOTAL 0.4 mg/dL (0.2-1.0); MAGNESIUM 2.8 mg/dL (1.8-2.4); PHOSPHORUS 6.8 mg/dL (2.5-4.9); TOTAL PROTEIN, SERUM 6.8 g/dL (6.4-8.2)
[2021-03-27] MEDS: INSULIN REGULAR, HUMAN 100 UNIT/ML 3 ML VIAL SQ PRN ×4 (08:53→21:21)
[2021-03-27] MEDS: BLOOD SUGAR DIAGNOSTIC 1 EACH STRIP IN SCH ×4 (08:53→21:17)
[2021-03-27] MEDS: ENSURE ENLIVE 237 ML LIQUID (VANILLA) PO SCH ×3 (08:54→17:04)
[2021-03-27] MEDS: CALCIUM ACETATE 667 MG CAP/TAB PO SCH ×3 (08:58→17:25)
[2021-03-27] MEDS: DOXYCYCLINE HYCLATE (100 MG) 100 MG TABLET PO SCH ×2 (08:58→21:17)
[2021-03-27] MEDS: CHOLECALCIFEROL 1,000 UNIT TABLET (VIT D3) PO SCH (08:58)
[2021-03-27] MEDS: CLOPIDOGREL BISULFATE 75 MG TABLET PO SCH (08:58)
[2021-03-27] MEDS: AZITHROMYCIN 250 MG TABLET PO SCH (08:58)
[2021-03-27] MEDS: TAMSULOSIN 0.4 MG CAP.SR.24H PO SCH ×2 (08:58→17:25)
[2021-03-27] MEDS: ESCITALOPRAM OXALATE (10 MG) 10 MG TABLET PO SCH (08:58)
--- NOTE | 2021-03-27 09:00 | NUR ---
RN NOTE PATIENT ON O2 VIA NC @ 2LPM O2 SAT OF 97% TOLERATING WELL WILL CONTINUE TO MONITOR.
[2021-03-27 10:23] LABS: ABG BASE EXCESS -0.6 mmol/L; ABG PCO2 47.9 mmHg (35.0-45.0); ABG PH 7.341 (7.350-7.450); ABG PO2 70.3 mmHg (75.0-100.0); MetHb 0.3 % (0.0-1.5); O2Hb 91.7 % (94.0-97.0); SITE, ABG Left Radial; VENT MODE, BG 1L NC
[2021-03-27] MEDS: methylPREDNISolone SOD SUCC 40 MG/ML VIAL IV SCH ×3 (11:00→20:19)
[2021-03-27] MEDS: [UNRECOGNIZED DRUG - OTHER] PO SCH ×2 (11:29→21:17)
[2021-03-27] MEDS: ALBUTEROL HALF STRENGTH 1.25 MG/3 ML VIAL.NEB NEB SCH ×2 (14:18→19:40)
--- NOTE | 2021-03-27 15:18 | NUR ---
RN NOTE PATIENT SEEN BY DR. TINEO UPDATED REGARDING PATIENT CURRENT CONDITION AND LABORATORY RESULT, MD ORDERED BLOOD TRANSFUSION.
[2021-03-27] MEDS: SIMVASTATIN 20 MG TABLET PO SCH (17:25)
--- NOTE | 2021-03-27 18:49 | NUR ---
RN NOTE PATIENT IN BED AWAKE, ALERT AND ORIENTED X1 WITH EPISODE OF CONFUSION, ON TELE MONITOR SR WITH NO COMPLAINS OF PAIN AT THIS TIME, S/P 1 UNIT PRBC TRASFUSE, NO BLOOD TRANSFUSION REACTION NOTED, ON HEPARIN 1300 UNITS.HR NO BLEEDING NOTED, ON CAMPBELL CATHETER DRAINING WELL, DUE MEDICATION GIVEN ORDERED, NEEDS MET AND ANTICPATED, CALL LIGHT WITHIN REACH, BED WHEELS LOCK, SAFETY MEASURES OBSERVE, WILL ENDORSE TO NOC SHIFT.
--- NOTE | 2021-03-27 20:00 | NUR ---
ICU/AIRCRAFT WORKER PT NOTED WITH BRIGHT RED DRAINAGE FROM CAMPBELL CATH THAT WAS NOT PRESENT DURING REPORT. CAMPBELL CATH IS SECURED TO LEG VIA STATLOCK. PT DOES NOT SEEM TO BE PULLING AT CAMPBELL CATH AT THIS TIME. NO S/S OF TRAUMA TO THE PENIS NOTED. DR. MOHAMUD MADE AWARE OF THE SITUATION. MANUAL BLADDER IRRIGATION NEEDED TO PREVENT CLOTTING AND CONTINUE TO MONITOR.
[2021-03-27] MEDS: CEFEPIME 2 GM in IV D5W 100 ML IV SCH (20:19)
--- NOTE | 2021-03-27 23:12 | NUR ---
PT PLACED ON NOC BIPAP.
[2021-03-28] VITALS (24 sets, daily range): BP systolic 110–127; BP diastolic 52–90
[2021-03-28 05:15] LABS: HEMATOCRIT 25 % (39-51); HEMOGLOBIN 8.2 g/dL (13.5-17.5); LYMPHOCYTES # (AUTO) 0.1 K/uL (0.8-4.8); LYMPHOCYTES % (AUTO) 1.9 % (20.0-44.0); MEAN CORPUSCULAR HGB CONC 32 g/dl (31.0-36.0); MEAN CORPUSCULAR VOLUME 77 fL (80-96); MONOCYTES # (AUTO) 0.2 K/uL (0.1-1.30); MONOCYTES % (AUTO) 2.5 % (2.0-12.0); NEUTROPHILS # (AUTO) 6.2 K/uL (1.8-8.9); NEUTROPHILS % (AUTO) 95.6 % (43.0-81.0); PLATELET COUNT (AUTO) 134 K/uL (150-450); RED BLOOD CELL COUNT(AUTO) 3.26 MIL/uL (4.5-6.0); WHITE BLOOD COUNT (AUTO) 6.4 K/uL (4.3-11.0)
[2021-03-28] MEDS: methylPREDNISolone SOD SUCC 40 MG/ML VIAL IV SCH ×3 (05:27→20:58)
--- NOTE | 2021-03-28 07:15 | NUR ---
ICU OPENING NOTES RECEIVED PT IN BED, ON BIPAP, TOLERATING WELL. ON TELE MONITOR SR AT THIS TIME. BILATERAL SOFT WRIST RESTRAINTS NOTED. BARTOLO MIDLINE NOTED WITH HEPARIN 1300UNITS/HR RUNNING PER PROTOCOL. APTT OF 49.5 THIS MORNING NO CHANGE. NO BLEEDING NOTED. CAMPBELL CATH IN PLACE DRAINING MAURICIO COLORED URINE. SAFETY MEASURES IN PLACE. CALL LIGHT WITHIN REACH. WILL CONTINUE TO MONITOR.
[2021-03-28] MEDS: ALBUTEROL HALF STRENGTH 1.25 MG/3 ML VIAL.NEB NEB SCH ×3 (07:35→20:19)
[2021-03-28] MEDS: BLOOD SUGAR DIAGNOSTIC 1 EACH STRIP IN SCH ×4 (07:54→21:21)
[2021-03-28] MEDS: INSULIN REGULAR, HUMAN 100 UNIT/ML 3 ML VIAL SQ PRN ×4 (07:57→21:20)
--- NOTE | 2021-03-28 08:00 | NUR ---
RN NOTES RT AT BEDSIDE. BIPAP OFF, SWITCHED TO 2L NC TOLERATING WELL. O2 SAT 98%.
[2021-03-28] MEDS: ENSURE ENLIVE 237 ML LIQUID (VANILLA) PO SCH ×3 (08:05→17:09)
[2021-03-28] MEDS: ESCITALOPRAM OXALATE (10 MG) 10 MG TABLET PO SCH (08:17)
[2021-03-28] MEDS: CHOLECALCIFEROL 1,000 UNIT TABLET (VIT D3) PO SCH (08:17)
[2021-03-28] MEDS: CLOPIDOGREL BISULFATE 75 MG TABLET PO SCH (08:17)
[2021-03-28] MEDS: TAMSULOSIN 0.4 MG CAP.SR.24H PO SCH ×2 (08:17→16:40)
[2021-03-28] MEDS: CALCIUM ACETATE 667 MG CAP/TAB PO SCH ×3 (08:17→17:09)
[2021-03-28] MEDS: DOXYCYCLINE HYCLATE (100 MG) 100 MG TABLET PO SCH ×2 (08:17→20:58)
[2021-03-28] MEDS: AZITHROMYCIN 250 MG TABLET PO SCH (08:18)
[2021-03-28 10:08] LABS: LYMPHOCYTES % (MANUAL) 2 % (16-48); MONOCYTES % (MANUAL) 2 % (0-11.0); MYELOCYTES % 1 % (0-0); NEUTROPHILS % (MANUAL) 95 (42-76)
[2021-03-28 10:17] LABS: ALANINE AMINOTRANSFERASE 25 U/L (12-78); ALBUMIN 2.4 g/dL (3.4-5.0); ALKALINE PHOSPHATASE 88 U/L (46-116); ASPARTATE AMINOTRANSFERASE 24 U/L (15-37); BILIRUBIN,TOTAL 0.5 mg/dL (0.2-1.0); CARBON DIOXIDE 27 mmol/L (21-32); CHLORIDE 94 mmol/L (98-107); CREATININE 3.2 mg/dL (0.6-1.3); GLUCOSE 216 mg/dL (74-106); POTASSIUM 4.3 mmol/L (3.5-5.1); SODIUM SERUM 132 mmol/L (136-145); TOTAL PROTEIN, SERUM 6.9 g/dL (6.4-8.2)
[2021-03-28 11:00] LABS: UREA NITROGEN, BLOOD 89 mg/dL (7-18)
[2021-03-28] MEDS: [UNRECOGNIZED DRUG - OTHER] PO SCH ×2 (11:00→20:59)
[2021-03-28] MEDS: SIMVASTATIN 20 MG TABLET PO SCH (17:29)
[2021-03-28] MEDS: HEPARIN INFUSION/D5W 500 ML IV PRN (18:03)
--- NOTE | 2021-03-28 19:14 | NUR ---
RN NOTES NO SIGNIFICANT CHANGES THROUGHOUT THE SHIFT. NO SOB. ALL DUE MEDS GIVEN. NEEDS ATTENDED. KEPT CLEAN AND COMFORTABLE. SAFETY MEASURES IN PLACE. ENDORSED TO NIGHT RN FOR KENNY.
[2021-03-28] MEDS: CEFEPIME 2 GM in IV D5W 100 ML IV SCH (20:58)
[2021-03-29] VITALS (56 sets, daily range): BP systolic 64–153; BP diastolic 39–91
[2021-03-29] MEDS: DOXYCYCLINE HYCLATE (100 MG) 100 MG TABLET PO SCH ×2 (00:15→08:03)
--- NOTE | 2021-03-29 05:19 | NUR ---
WET ROOM SUPERVISOR PT IS CONFUSED & NONCOMPLIANT, DOES NOT FOLLOW COMMANDS. LANGUAGE BARRIER- PT DOES NOT SPEAK UPPER SORBIAN. ONLU AFTER MIDNIGHT HE ALLOWED THE RT PLACE HIM ON NOCTURNAL BIPAP. VSS, AFEBRILE, SCOPE-SR. PT REMAINS ON HEPARIN DRIP @ 1300 U.H. F/C DRAINS SUFFICIENT AMT. OF MAURICIO URINE. NO BM. SOFT WRIST RESTRAINTS ON.
[2021-03-29] MEDS: methylPREDNISolone SOD SUCC 40 MG/ML VIAL IV SCH ×2 (05:32→12:02)
--- NOTE | 2021-03-29 07:23 | NUR ---
RN OPENING NOTES; RECIEVED PT SLEEPING, IN SUPINE POS. PT ON A HEPARIN DRIP, BARTOLO ML NOTED, PATENT, WITH NO SIGNS OF INFILTRATION. PT HAS NO SOB NOTED, NO DISTRESS. ALL SAFETY MEASURES RENDERED, BED LOCKED IN LOWEST POS. WITH CALL LIGHT WITHIN REACH. WILL CONTINUE TO MONITOR.
[2021-03-29] MEDS: BLOOD SUGAR DIAGNOSTIC 1 EACH STRIP IN SCH ×4 (07:34→23:30)
[2021-03-29] MEDS: ENSURE ENLIVE 237 ML LIQUID (VANILLA) PO SCH ×3 (07:36→17:00)
[2021-03-29] MEDS: INSULIN REGULAR, HUMAN 100 UNIT/ML 3 ML VIAL SQ PRN ×3 (07:46→16:49)
[2021-03-29] MEDS: CALCIUM ACETATE 667 MG CAP/TAB PO SCH ×3 (08:03→17:04)
[2021-03-29] MEDS: ESCITALOPRAM OXALATE (10 MG) 10 MG TABLET PO SCH (08:03)
[2021-03-29] MEDS: CLOPIDOGREL BISULFATE 75 MG TABLET PO SCH (08:03)
[2021-03-29] MEDS: TAMSULOSIN 0.4 MG CAP.SR.24H PO SCH ×2 (08:03→17:04)
[2021-03-29] MEDS: CHOLECALCIFEROL 1,000 UNIT TABLET (VIT D3) PO SCH (08:03)
[2021-03-29] MEDS: ALBUTEROL HALF STRENGTH 1.25 MG/3 ML VIAL.NEB NEB SCH ×3 (08:20→19:30)
--- NOTE | 2021-03-29 08:26 | NUR ---
RN NOTES PTT RESULTS OF 56.8. PER PROTOCOL NO CHANGE TO HEPARIN DOSE DRIP. WILL CONTINUE TO MONITOR.
--- NOTE | 2021-03-29 08:47 | NUR ---
RN NOTES; HALL CLERK STEPHANIE BOONE, CALLED FROM [facility]. UPDATE GIVEN REGARDING PT HEALTH STATUS. DIRECT LINE IS [phone], (FAX) [phone]. REQUESTED PT FACE SHEET, H&P AND CONSULT FAXED.
[2021-03-29 09:21] LABS: CALCIUM, SERUM 7.8 mg/dL (8.5-10.1); CARBON DIOXIDE 29 mmol/L (21-32); CHLORIDE 98 mmol/L (98-107); CREATININE 2.9 mg/dL (0.6-1.3); GLUCOSE 180 mg/dL (74-106); POTASSIUM 4.9 mmol/L (3.5-5.1); SODIUM SERUM 135 mmol/L (136-145)
[2021-03-29 09:27] LABS: ALANINE AMINOTRANSFERASE 25 U/L (12-78); ALBUMIN 1.9 g/dL (3.4-5.0); ALKALINE PHOSPHATASE 71 U/L (46-116); ASPARTATE AMINOTRANSFERASE 26 U/L (15-37); BILIRUBIN,TOTAL 0.3 mg/dL (0.2-1.0); PHOSPHORUS 4.6 mg/dL (2.5-4.9); TOTAL PROTEIN, SERUM 5.4 g/dL (6.4-8.2); UREA NITROGEN, BLOOD 140 mg/dL (7-18)
[2021-03-29] MEDS: HEPARIN SODIUM, PORCINE 5000 UNITS/1 ML VIAL SQ SCH ×2 (10:00→22:00)
[2021-03-29 12:48] LABS: BASOPHILS % (AUTO) 0.1 % (0.0-2.0); LYMPHOCYTES # (AUTO) 0.7 K/uL (0.8-4.8); LYMPHOCYTES % (AUTO) 6.5 % (20.0-44.0); MEAN CORPUSCULAR HGB CONC 33 g/dl (31.0-36.0); MEAN CORPUSCULAR VOLUME 78 fL (80-96); MONOCYTES # (AUTO) 1.5 K/uL (0.1-1.30); MONOCYTES % (AUTO) 13.5 % (2.0-12.0); NEUTROPHILS # (AUTO) 8.6 K/uL (1.8-8.9); NEUTROPHILS % (AUTO) 79.9 % (43.0-81.0); PLATELET COUNT (AUTO) 124 K/uL (150-450); RED BLOOD CELL COUNT(AUTO) 2.03 MIL/uL (4.5-6.0); WHITE BLOOD COUNT (AUTO) 10.8 K/uL (4.3-11.0)
[2021-03-29 13:25] LABS: HEMOGLOBIN 5.1 g/dL (13.5-17.5)
[2021-03-29 13:26] LABS: HEMATOCRIT 16 % (39-51)
--- NOTE | 2021-03-29 13:33 | NUR ---
RN NOTES; PT HGB 5.1, HCT 16, PLATELET 124. DNP BRAD SALMON NOTIFIED. 2U RBC ORDERED WITH DIALYSIS. WILL CONTINUE TO MONITOR.
[2021-03-29] MEDS ORDERED: DESMOPRESSIN 20 MCG in IV NS 0.9% 50 ML IV ONE (15:00)
[2021-03-29] MEDS: SIMVASTATIN 20 MG TABLET PO SCH (17:04)
[2021-03-29 17:33] LABS: LYMPHOCYTES % (MANUAL) 8 % (16-48); MONOCYTES % (MANUAL) 5 % (0-11.0); NEUTROPHILS % (MANUAL) 87 (42-76)
--- NOTE | 2021-03-29 18:52 | NUR ---
RN CLOSING NOTES; PT A/OX3, PT IN SUPINE POS. PT HEMOGLOBIN IS 5.1, HEMATOCRIT 16. DNP AWARE. 2 PACK RBC ORDERED. TONYA NON TUNNELLED CATH IJ INSERTED. ALL MEDICATION GIVEN AND TOLERATED WELL. PT KEPT CLEAN, DRY AND COMFORTABLE. ALL SAFETY MEASURES RENDERED, BED IN LOWEST POS. WITH CALL LIGHT WITHIN REACH. ENDORSED TO THRESHING DEPARTMENT SUPERVISOR NURSE.
--- NOTE | 2021-03-29 19:32 | NUR ---
RN NOTE CLARIFIED AN ORDER FROM DR TINEO, NO NEED FOR PLATELETS. ORDERED TO GIVE PRBC TOTAL 3 UNITS TO BE GIVEN DURING DIALYSIS.
--- NOTE | 2021-03-29 20:30 | NUR ---
RN NOTE PT BLOOD PRODUCT ACCIDENTALLY SCANNED UNDER PREVIOUS NURSE, WAS NOT SIGNED OUT. PRIMARY NURSE BUSY WITH CODE FOR ANOTHER PT. BLOOD HAS BEEN VERIFIED, CORRECT PT, BLOOD TYPE, CORRECT BLOOD PRODUCT. STARTED BY Miguel YOUNG AND VERIFIED WITH Estrella BECERRA RN. PT CURRENTLY RECEIVING BLOOD TRANSFUSION, DURING DIALYSIS ORDERED BY DR TINEO.
[2021-03-29] MEDS ORDERED: NOREPINEPHRINE 4 MG/4 ML AMPUL IV ONE (20:43)
[2021-03-29] MEDS ORDERED: NOREPINEPHRINE 32 MG in IV NS 0.9% 218 ML IV PRN (21:00)
--- NOTE | 2021-03-29 22:00 | NUR ---
RN NOTE' PT HAVING HD, ALL DUE MEDS WILL BE GIVEN AFTER DIALYSIS.
--- NOTE | 2021-03-29 22:15 | NUR ---
RN NOTE 3RD UNIT OF PRBC STARTED BY HD NURSE, TOLERATED 2 UNITS OF BLOOD TRANSFUSION. NO S/SX OF ADVERSE REACTIONS NOTED. PT ALERT. HD NURSE AND SON AT BEDSIDE. STILL ON HD, WITH PRESSORS ON SUPPORT. ON LEVOPHED, TITRATING PER PROTOCOL.
--- NOTE | 2021-03-29 23:50 | NUR ---
RN NOTE PT DONE WITH DIALYSIS. 3 UNITS OF PRBC GIVEN, PER HD NURSE ONLY REMOVED FLUIDS FROM BLOOD TRANSFUSION VOLUME. OTHER ELSE DID NOT REMOVE ANYTHING.
[2021-03-30] VITALS (74 sets, daily range): BP systolic 95–139; BP diastolic 22–83
[2021-03-30] MEDS: CEFEPIME 2 GM in IV D5W 100 ML IV SCH ×2 (00:14→22:18)
--- NOTE | 2021-03-30 00:15 | NUR ---
RN NOTE PT LETHARGIC, RESPONDS TO VERBAL STIMULI, OPEN EYES. PT WITH DUE PO ATB. DR MOHAMUD NOTIFIED. OK TO HOLD PO VIBRAMYCIN. HEPARIN WAS HELD WELL DUE TO LOW HGB. PT FSBS AT 189, PT DID NOT HAVE DINNER. PER DR MOHAMUD OK TO HOLD INSULIN. WILL RECHECK IN AM. ALL OTHER DUE MEDS WERE GIVEN LATE DUE TO PT HAD DIALYSIS.
[2021-03-30] MEDS: methylPREDNISolone SOD SUCC 40 MG/ML VIAL IV SCH ×4 (00:16→22:18)
[2021-03-30] MEDS: INSULIN REGULAR, HUMAN 100 UNIT/ML 3 ML VIAL SQ PRN ×5 (00:39→22:37)
[2021-03-30 00:50] LABS: BASOPHILS # (AUTO) 0.1 K/uL (0.0-0.2); BASOPHILS % (AUTO) 0.4 % (0.0-2.0); EOSINOPHILS % (AUTO) 1.2 % (0.0-6.0); HEMATOCRIT 28 % (39-51); HEMOGLOBIN 9.3 g/dL (13.5-17.5); LYMPHOCYTES # (AUTO) 0.5 K/uL (0.8-4.8); LYMPHOCYTES % (AUTO) 2.3 % (20.0-44.0); MEAN CORPUSCULAR HGB CONC 33 g/dl (31.0-36.0); MEAN CORPUSCULAR VOLUME 82 fL (80-96); MONOCYTES # (AUTO) 1.7 K/uL (0.1-1.30); MONOCYTES % (AUTO) 7.8 % (2.0-12.0); NEUTROPHILS # (AUTO) 19.5 K/uL (1.8-8.9); NEUTROPHILS % (AUTO) 88.3 % (43.0-81.0); PLATELET COUNT (AUTO) 154 K/uL (150-450); RED BLOOD CELL COUNT(AUTO) 3.43 MIL/uL (4.5-6.0); WHITE BLOOD COUNT (AUTO) 22.1 K/uL (4.3-11.0)
--- NOTE | 2021-03-30 04:00 | NUR ---
RN NOTE PT ON BIPAP. TOLERATING SETTINGS. NO S/SX OF DISTRESS
[2021-03-30 04:33] LABS: BASOPHILS % (AUTO) 0.1 % (0.0-2.0); EOSINOPHILS % (AUTO) 0.7 % (0.0-6.0); HEMATOCRIT 25 % (39-51); HEMOGLOBIN 8.2 g/dL (13.5-17.5); LYMPHOCYTES # (AUTO) 0.4 K/uL (0.8-4.8); LYMPHOCYTES % (AUTO) 2.8 % (20.0-44.0); MEAN CORPUSCULAR HGB CONC 33 g/dl (31.0-36.0); MEAN CORPUSCULAR VOLUME 82 fL (80-96); MONOCYTES # (AUTO) 0.7 K/uL (0.1-1.30); MONOCYTES % (AUTO) 4.9 % (2.0-12.0); NEUTROPHILS # (AUTO) 13.4 K/uL (1.8-8.9); NEUTROPHILS % (AUTO) 91.5 % (43.0-81.0); PLATELET COUNT (AUTO) 114 K/uL (150-450); RED BLOOD CELL COUNT(AUTO) 3.02 MIL/uL (4.5-6.0); WHITE BLOOD COUNT (AUTO) 14.7 K/uL (4.3-11.0)
[2021-03-30 04:47] LABS: ALANINE AMINOTRANSFERASE 33 U/L (12-78); ALBUMIN 2.1 g/dL (3.4-5.0); ALKALINE PHOSPHATASE 71 U/L (46-116); ASPARTATE AMINOTRANSFERASE 27 U/L (15-37); BILIRUBIN,TOTAL 0.5 mg/dL (0.2-1.0); CALCIUM, SERUM 8.1 mg/dL (8.5-10.1); CARBON DIOXIDE 27 mmol/L (21-32); CHLORIDE 100 mmol/L (98-107); GLUCOSE 243 mg/dL (74-106); MAGNESIUM 2.6 mg/dL (1.8-2.4); PHOSPHORUS 4.3 mg/dL (2.5-4.9); SODIUM SERUM 135 mmol/L (136-145); TOTAL PROTEIN, SERUM 5.3 g/dL (6.4-8.2)
--- NOTE | 2021-03-30 05:00 | NUR ---
RN NOTE PT CONTINUE ON BIPAP. NO S/SX OF DISTRESS. PT NODS YES WHEN ASKED IF HE'S OK.
[2021-03-30 05:04] LABS: UREA NITROGEN, BLOOD 98 mg/dL (7-18)
[2021-03-30 06:50] LABS: BAND % (MANUAL) 1 % (0.0-5.0); LYMPHOCYTES % (MANUAL) 3 % (16-48); METAMYELOCYTES % 2 % (0-0); MONOCYTES % (MANUAL) 5 % (0-11.0); MYELOCYTES % 2 % (0-0); NEUTROPHILS % (MANUAL) 86 (42-76); REACTIVE LYMPHOCYTES 1 % (0-0)
--- NOTE | 2021-03-30 07:17 | NUR ---
RN NOTE PT CONTINUE ON BIPAP. NO S/SX OF DISTRESS. O2 SAT AT 100%. PT OPEN EYES TO VERBAL STIMULI. NODS YES AND NO TO QUESTIONS. STOPPED LEVOPHED PER PROTOCOL. BP STABLE. CAMPBELL DRAINING WELL. WITH 950 ML URINE OUTPUT. ALL SAFETY MEASURES MAINTAINED. ON FREQUENT VISUAL CHECKS. ENDORSED TO NEXT SHIFT NURSE FOR KENNY.
--- NOTE | 2021-03-30 07:30 | NUR ---
RN OPENING NOTES Patient is received asleep in bed.Patient is on Bipap and with 02 sat of 98%.Per report patient's levo is turned off. Hutchinson cath intact and hanging to gravity. HOB kept elevated. Call light with in reach Will continue to monitor.
[2021-03-30] MEDS: BLOOD SUGAR DIAGNOSTIC 1 EACH STRIP IN SCH ×4 (07:45→22:35)
[2021-03-30] MEDS: ALBUTEROL HALF STRENGTH 1.25 MG/3 ML VIAL.NEB NEB SCH ×3 (08:00→20:00)
--- NOTE | 2021-03-30 08:00 | NUR ---
Patient's hgb is 8.2 and platelets of 114. Spoke to Dr De La Rosa and made aware. Per it's ok to give heparin subq.
[2021-03-30] MEDS: TAMSULOSIN 0.4 MG CAP.SR.24H PO SCH ×2 (08:22→17:09)
[2021-03-30] MEDS: CLOPIDOGREL BISULFATE 75 MG TABLET PO SCH (08:22)
[2021-03-30] MEDS: ESCITALOPRAM OXALATE (10 MG) 10 MG TABLET PO SCH (08:22)
[2021-03-30] MEDS: DOXYCYCLINE HYCLATE (100 MG) 100 MG TABLET PO SCH ×2 (08:22→21:34)
[2021-03-30] MEDS: CHOLECALCIFEROL 1,000 UNIT TABLET (VIT D3) PO SCH (08:22)
[2021-03-30] MEDS: CALCIUM ACETATE 667 MG CAP/TAB PO SCH ×3 (08:23→17:09)
[2021-03-30] MEDS: ENSURE ENLIVE 237 ML LIQUID (VANILLA) PO SCH ×3 (08:23→17:09)
[2021-03-30] MEDS: HEPARIN SODIUM, PORCINE 5000 UNITS/1 ML VIAL SQ SCH ×2 (08:29→21:38)
--- NOTE | 2021-03-30 10:24 | NUR ---
Patient seen by Dr Luis E Simmons. Son at beside.
[2021-03-30] MEDS: PANTOPRAZOLE 40 MG VIAL IV SCH ×2 (10:39→17:09)
[2021-03-30] MEDS: SOD FERRIC GLUC 125 MG in IV NS 0.9% 100 ML IV SCH (16:56)
[2021-03-30] MEDS: SIMVASTATIN 20 MG TABLET PO SCH (17:09)
--- NOTE | 2021-03-30 17:33 | NUR ---
MADE AWARE TO BRING MORE MEDICINE TASIGNA.
--- NOTE | 2021-03-30 19:15 | NUR ---
RN CLOSING NOTES Patient is in bed awake and alert with 02 sat of 98%. on 1liter 02 via n/c. Hutchinson cath intact and hanging to gravity with output of 800cc. Endorsed to next shift for collection of occult blood. Hemodiaylsis started at the end of the shift. HOB kept elevated. Call light with in reach.
--- NOTE | 2021-03-30 19:28 | NUR ---
RN CLOSING NOTES Patient is in bed awake and alert with 02 sat of 98%. on 1liter 02 via n/c. Hutchinson cath intact and hanging to gravity. HOB kept elevated. Call light with in reach Will continue to monitor.
--- NOTE | 2021-03-30 19:30 | NUR ---
Received call from DR VEE regarding patient. Per MD order for EGD in am and to keep patient NPO except meds after midnight. Patient ok to receive subq heparin. Endorsed to next shift for follow up with consent completion and endorsement for NPO.
--- NOTE | 2021-03-30 20:11 | NUR ---
TRUCK PACKER: JOCELYN SALINAS GAVE CONSENT FOR EGD IN AM. ONGOING HD WT NO ACUTE DISTRESS. STILL ON 1L NC. VS WITHIN BASELINE. NO C/O PAIN OR EVIDENCE OF DISCOMFORT. ABLE TO MAKE NEEDS KNOWN. NO ACTIVE BLEEDING AT THIS TIME. SAFETY PRECAUTIONS NOTED. SON AT BEDSIDE. WILL CONTINUE TO MONITOR.
--- NOTE | 2021-03-30 21:30 | NUR ---
PROPERTY OFFICER: STILL ONGOING HD; PRIMARY NURSE TRIED TO USE [employer] FOR INTERPRETATION BUT PT UNABLE TO COMMUNICATE ON THE PHONE. SON BRAD AT BEDSIDE REQUESTED TO STAY TO INTERPRET DURING MEDICATION ADMINISTRATION AND WHILE UNDERGOING HD AND PARTICIPATED DURING PT CARE. EXPLAINED TO HIM RE VISITING HOURS AND VERBALIZED UNDERSTANDING TO LEAVE AFTER ALL MEDS ARE GIVEN AND AFTER HD IS PERFORMED.
[2021-03-30] MEDS: [UNRECOGNIZED DRUG - OTHER] PO SCH (21:33)
--- NOTE | 2021-03-30 22:00 | NUR ---
OBSERVER ELECTRICAL PROSPECTING: HEMODIALYSIS PERFORMED WT 500ML FLUID REMOVAL. TOLERATED WELL. NO ADVERSE CHANGES. ORAL SUCTION WT SMALL AMT. OF TANNER THICK SECRETIONS. GOOD ORAL CARE RENDERED. ALL DUE MEDS ADMINISTERED WT HELP OF SON. SON WAS THEN SENT HOME. WILL CONTINUE TO MONITOR.
--- NOTE | 2021-03-30 23:07 | NUR ---
RT NOTE PT PLACED ON BIPAP PER MD ORDER.
[2021-03-31] VITALS (43 sets, daily range): BP systolic 102–136; BP diastolic 39–70
--- NOTE | 2021-03-31 03:31 | NUR ---
RT NOTE PT REMOVED BIPAP AND PLACED ON 1LNC. NO RESP DISTRESS NOTED AT THIS TIME. CARITO MATTHEWS.
[2021-03-31 04:40] LABS: HEMATOCRIT 21 % (39-51); LYMPHOCYTES # (AUTO) 0.4 K/uL (0.8-4.8); LYMPHOCYTES % (AUTO) 3.6 % (20.0-44.0); MEAN CORPUSCULAR HGB CONC 33 g/dl (31.0-36.0); MEAN CORPUSCULAR VOLUME 83 fL (80-96); MONOCYTES # (AUTO) 0.6 K/uL (0.1-1.30); NEUTROPHILS # (AUTO) 8.8 K/uL (1.8-8.9); NEUTROPHILS % (AUTO) 90.4 % (43.0-81.0); PLATELET COUNT (AUTO) 86 K/uL (150-450); RED BLOOD CELL COUNT(AUTO) 2.49 MIL/uL (4.5-6.0); WHITE BLOOD COUNT (AUTO) 9.8 K/uL (4.3-11.0)
[2021-03-31 04:45] LABS: HEMOGLOBIN 6.9 g/dL (13.5-17.5)
[2021-03-31 05:03] LABS: CALCIUM, SERUM 7.7 mg/dL (8.5-10.1); CARBON DIOXIDE 27 mmol/L (21-32); CHLORIDE 103 mmol/L (98-107); CREATININE 1.4 mg/dL (0.6-1.3); GLUCOSE 249 mg/dL (74-106); POTASSIUM 4.3 mmol/L (3.5-5.1); SODIUM SERUM 137 mmol/L (136-145); UREA NITROGEN, BLOOD 61 mg/dL (7-18)
[2021-03-31] MEDS: methylPREDNISolone SOD SUCC 40 MG/ML VIAL IV SCH ×3 (05:39→21:25)
--- NOTE | 2021-03-31 05:55 | NUR ---
MANAGER OF HEALTH: DR. MOHAMUD MADE AWARE OF HGB=6.9. NO ACTIVE BLEEDING. NO SIGNIFICANT KENNY DURING THE SHIFT. STILL ON 1L 02 VIA NC AND STILL OFF VASOPRESSORS. MD OLIVEIRA ORDERS TO GIVE 1U PRBC AND TO REPEAT CBC 1 HOUR AFTER TRANSFUSION. NOTED AND CARRIED OUT. WILL CONTINUE TO MONITOR.
[2021-03-31 06:31] LABS: BAND % (MANUAL) 1 % (0.0-5.0); LYMPHOCYTES % (MANUAL) 4 % (16-48); METAMYELOCYTES % 1 % (0-0); MONOCYTES % (MANUAL) 4 % (0-11.0); NEUTROPHILS % (MANUAL) 90 (42-76)
--- NOTE | 2021-03-31 07:00 | NUR ---
STATIONARY EQUIPMENT MECHANIC: TOMMY FROM [facility]OD [facility] CALLED AND SAID PRBC WAS ORDERED STAT. ENDORSED TO DAY SHIFT RN FOR CONTINUITY OF CARE.
[2021-03-31] MEDS: ALBUTEROL HALF STRENGTH 1.25 MG/3 ML VIAL.NEB NEB SCH ×3 (07:27→20:13)
--- NOTE | 2021-03-31 07:30 | NUR ---
ICU/RN PT IS AWAKE .ALERT.FARCI SPEAKING.RESTING IN THE BED .ON 1L N/C SAT O2-100%.V/S STABLE,AFEBRILE.OFF PRESSORS.NPO.WAITING FOR EGD.F/C DRAINING WITH YELLOW URINE.GENERALIZED EDEMA PRESENT.RIGHT IJ HD CATH.LEFT UPPER ARM ML.REDNESS ON LOWER BACK NOTED.LABS REVIEW.MD NOTIFIED.WAITING FOR 1 UNIT PRBC.
[2021-03-31] MEDS: ENSURE ENLIVE 237 ML LIQUID (VANILLA) PO SCH ×3 (08:00→18:02)
[2021-03-31] MEDS: BLOOD SUGAR DIAGNOSTIC 1 EACH STRIP IN SCH ×4 (08:44→21:25)
[2021-03-31] MEDS: PANTOPRAZOLE 40 MG VIAL IV SCH ×2 (08:44→17:48)
[2021-03-31] MEDS: ESCITALOPRAM OXALATE (10 MG) 10 MG TABLET PO SCH (08:45)
[2021-03-31] MEDS: CHOLECALCIFEROL 1,000 UNIT TABLET (VIT D3) PO SCH (08:45)
[2021-03-31] MEDS: TAMSULOSIN 0.4 MG CAP.SR.24H PO SCH ×2 (08:45→17:48)
[2021-03-31] MEDS: DOXYCYCLINE HYCLATE (100 MG) 100 MG TABLET PO SCH ×2 (08:45→21:25)
[2021-03-31] MEDS: CALCIUM ACETATE 667 MG CAP/TAB PO SCH ×3 (08:45→17:48)
[2021-03-31] MEDS: HEPARIN SODIUM, PORCINE 5000 UNITS/1 ML VIAL SQ SCH ×2 (08:46→21:26)
[2021-03-31] MEDS ORDERED: methylPREDNISolone SOD SUCC 125 MG/2ML VIAL ONE (10:13)
[2021-03-31] MEDS ORDERED: CEFEPIME 2 GM in IV D5W 100 ML IV SCH (12:00)
[2021-03-31] MEDS: [UNRECOGNIZED DRUG - OTHER] PO SCH ×2 (12:29→21:28)
[2021-03-31 12:45] LABS: ABG BASE EXCESS 0.2 mmol/L; ABG OXYGEN SATURATION 91.7 % (92.0-98.5); ABG PCO2 41.2 mmHg (35.0-45.0); ABG PH 7.401 (7.350-7.450); ABG PO2 64.2 mmHg (75.0-100.0); AaDO2 57.9 mmHg; COHb 0.2 % (0.5-1.5); MetHb 0.3 % (0.0-1.5); O2Hb 91.2 % (94.0-97.0); SITE, ABG Right Brachial
--- NOTE | 2021-03-31 13:00 | NUR ---
ICU/RN 1 UNIT PRBC GIVEN ORDERED. NO TRANSFUSION REACTION NOTED.V/S STABLE ,AFEBRILE.PT IS BACK FROM EGD.
[2021-03-31] MEDS: SOD FERRIC GLUC 125 MG in IV NS 0.9% 100 ML IV SCH (13:46)
--- NOTE | 2021-03-31 16:50 | NUR ---
ICU/RN PM CARE PROVIDED.HAS 1 SOFT DARK BROWN BM. STOOL SENT TO LAB FOR OB TEST.
[2021-03-31] MEDS: SIMVASTATIN 20 MG TABLET PO SCH (17:49)
--- NOTE | 2021-03-31 18:00 | NUR ---
ICU/RN PT IS HAVING HD.1 UNIT PRBC GIVEN WITH HD ORDERED. DUE MEDS ARE GIVEN ORDERED, V/S STABLE. AFEBRILE.CONTINUE MONITORING.
[2021-03-31] MEDS: INSULIN REGULAR, HUMAN 100 UNIT/ML 3 ML VIAL SQ PRN ×2 (18:31→21:27)
--- NOTE | 2021-03-31 20:10 | NUR ---
ICU NOTES Patient awake alert follows commands verbally responsive but speaks Farsi with RT,RORO at bedside as varnish maker helper.Just finished HD 500 ml out.Patient tolerated procedure well.SR.Normotensive.Respiration even and unlabored with 02 2LNC saturation 98%.FC to gravity.IVF NS at TKO infusing via BARTOLO ML. Site intact.Turned and repositioned. at bedside updated of patient status and plan of care. Verbalized understanding.
[2021-03-31 20:47] LABS: OCCULT BLOOD STOOL POSITIVE (NEGATIVE)
--- NOTE | 2021-03-31 21:30 | NUR ---
ICU NOTES Patient son Hernandez mak.Updated of patient status and plan of care.Verbalized understand. Placed on high fowlers positioned.Due medications administered orally well tolerated.Verbalized he is hungry.Spoon fed with apple sauce and Jello ate with good appetite.
[2021-03-31 22:26] LABS: BASOPHILS % (AUTO) 0.1 % (0.0-2.0); EOSINOPHILS % (AUTO) 0.1 % (0.0-6.0); HEMATOCRIT 26 % (39-51); HEMOGLOBIN 8.5 g/dL (13.5-17.5); LYMPHOCYTES # (AUTO) 0.4 K/uL (0.8-4.8); LYMPHOCYTES % (AUTO) 3.6 % (20.0-44.0); MEAN CORPUSCULAR HGB CONC 33 g/dl (31.0-36.0); MEAN CORPUSCULAR VOLUME 84 fL (80-96); MONOCYTES # (AUTO) 0.3 K/uL (0.1-1.30); MONOCYTES % (AUTO) 3.3 % (2.0-12.0); NEUTROPHILS % (AUTO) 92.9 % (43.0-81.0); PLATELET COUNT (AUTO) 90 K/uL (150-450); RED BLOOD CELL COUNT(AUTO) 3.05 MIL/uL (4.5-6.0); WHITE BLOOD COUNT (AUTO) 9.7 K/uL (4.3-11.0)
[2021-03-31 22:46] LABS: BAND % (MANUAL) 2 % (0.0-5.0); LYMPHOCYTES % (MANUAL) 2 % (16-48); MONOCYTES % (MANUAL) 1 % (0-11.0); NEUTROPHILS % (MANUAL) 94 (42-76)
[2021-03-31 22:47] LABS: MYELOCYTES % 1 % (0-0)
--- NOTE | 2021-03-31 23:35 | NUR ---
RT NOTE PT REFUSING BIPAP AFTER EXPLAINING RISKS AND BENEFITS. CARITO KAYE @ BEDSIDE. NO RESPIRATORY DISTRESS NOTED. PT TOLERATING NASAL CANNULA @ 1 LPM WELL. WILL CONTINUE TO MONITOR.
--- NOTE | 2021-03-31 23:35 | NUR ---
ICU NOTES Patient place on BIPAP by RT,CHURCH but patient keep taking it off. Changed to O2 1LNC sat 98%.NAD.
[2021-04-01] VITALS (19 sets, daily range): BP systolic 111–138; BP diastolic 45–62
[2021-04-01 04:35] LABS: BASOPHILS % (AUTO) 0.2 % (0.0-2.0); HEMATOCRIT 26 % (39-51); HEMOGLOBIN 8.6 g/dL (13.5-17.5); LYMPHOCYTES # (AUTO) 0.4 K/uL (0.8-4.8); LYMPHOCYTES % (AUTO) 3.6 % (20.0-44.0); MEAN CORPUSCULAR HGB CONC 33 g/dl (31.0-36.0); MEAN CORPUSCULAR VOLUME 84 fL (80-96); MONOCYTES # (AUTO) 0.4 K/uL (0.1-1.30); MONOCYTES % (AUTO) 3.6 % (2.0-12.0); NEUTROPHILS # (AUTO) 9.6 K/uL (1.8-8.9); NEUTROPHILS % (AUTO) 92.6 % (43.0-81.0); PLATELET COUNT (AUTO) 107 K/uL (150-450); RED BLOOD CELL COUNT(AUTO) 3.09 MIL/uL (4.5-6.0); WHITE BLOOD COUNT (AUTO) 10.3 K/uL (4.3-11.0)
[2021-04-01] MEDS: methylPREDNISolone SOD SUCC 40 MG/ML VIAL IV SCH ×3 (04:35→20:45)
[2021-04-01 04:53] LABS: ALANINE AMINOTRANSFERASE 34 U/L (12-78); ALBUMIN 2.3 g/dL (3.4-5.0); ALKALINE PHOSPHATASE 55 U/L (46-116); ASPARTATE AMINOTRANSFERASE 27 U/L (15-37); BILIRUBIN,TOTAL 0.3 mg/dL (0.2-1.0); CALCIUM, SERUM 7.7 mg/dL (8.5-10.1); CARBON DIOXIDE 27 mmol/L (21-32); CHLORIDE 107 mmol/L (98-107); CREATININE 1.3 mg/dL (0.6-1.3); GLUCOSE 268 mg/dL (74-106); MAGNESIUM 2.2 mg/dL (1.8-2.4); PHOSPHORUS 3.3 mg/dL (2.5-4.9); POTASSIUM 4.7 mmol/L (3.5-5.1); SODIUM SERUM 139 mmol/L (136-145); TOTAL PROTEIN, SERUM 5.4 g/dL (6.4-8.2); UREA NITROGEN, BLOOD 51 mg/dL (7-18)
--- NOTE | 2021-04-01 06:25 | NUR ---
ICU NOTES Patient vs remains stable.SR.Tolerating O2 1LNC.Patient pulled out Midline with tip intact. Pulled out cardiac lids off.Instructed patient to keep monitoring device on.Yells at times during the night looking for his son.Reoriented patient that he is in the hospital.No acute distress noted.Safety measures maintained.
[2021-04-01] MEDS: ALBUTEROL HALF STRENGTH 1.25 MG/3 ML VIAL.NEB NEB SCH ×3 (06:59→19:39)
--- NOTE | 2021-04-01 07:20 | NUR ---
RN NOTES PT FOUND HIGH LIN'S DISPLAYING NO S/S OF DISTRESS, FLACC = 0 AND BREATHING IS EVEN AND UNLABORED ON RA. PT CURRENTLY RESTRAINED W/ SOFT WRISTS BILATERALLY, REPORT FROM PAVING INSPECTOR STATES THAT PT WAS ATTEMPTING TO PULL OUT TRIALYSIS. PULSES PALPATED AND CAP REFILL < 3 SECONDS BILATERALLY. R IJ IS DRY, CLEAN AND INTACT, NO BLOOD OR FLUID OBSERVED. CAMPBELL CATH BELOW PATIENT DRAINING BY GRAVITY. VSS, RN WILL MONITOR AND TREAT THROUGHOUT SHIFT. SAFETY MEASURES IN PLACE, BED LOCKED AND IN LOWEST POSITION, SIDE RAILS UPX2, CALL LIGHT WITHIN REACH, BED ALARM ARMED.
[2021-04-01] MEDS: BLOOD SUGAR DIAGNOSTIC 1 EACH STRIP IN SCH ×4 (07:50→21:37)
[2021-04-01] MEDS: ENSURE ENLIVE 237 ML LIQUID (VANILLA) PO SCH ×3 (08:12→17:48)
[2021-04-01] MEDS: ESCITALOPRAM OXALATE (10 MG) 10 MG TABLET PO SCH (08:12)
[2021-04-01] MEDS: CALCIUM ACETATE 667 MG CAP/TAB PO SCH ×3 (08:12→17:48)
[2021-04-01] MEDS: DOXYCYCLINE HYCLATE (100 MG) 100 MG TABLET PO SCH (08:12)
[2021-04-01] MEDS: CHOLECALCIFEROL 1,000 UNIT TABLET (VIT D3) PO SCH (08:12)
[2021-04-01] MEDS: TAMSULOSIN 0.4 MG CAP.SR.24H PO SCH ×2 (08:12→17:49)
[2021-04-01] MEDS: PANTOPRAZOLE 40 MG VIAL IV SCH ×2 (08:12→17:49)
[2021-04-01] MEDS: INSULIN REGULAR, HUMAN 100 UNIT/ML 3 ML VIAL SQ PRN ×4 (08:16→21:35)
[2021-04-01] MEDS: HEPARIN SODIUM, PORCINE 5000 UNITS/1 ML VIAL SQ SCH ×2 (08:16→20:46)
[2021-04-01] MEDS: [UNRECOGNIZED DRUG - OTHER] PO SCH ×2 (10:11→20:45)
[2021-04-01] MEDS: SOD FERRIC GLUC 125 MG in IV NS 0.9% 100 ML IV SCH (13:47)
[2021-04-01] MEDS: SIMVASTATIN 20 MG TABLET PO SCH (17:49)
--- NOTE | 2021-04-01 18:30 | NUR ---
TRANSFER TO ANOTHER UNIT RN GAVE REPORT TO CARITO JOHNSON OVER THE PHONE. TRANSPORTED PT ON BEDSIDE MONITOR W/ CN TO 114 [facility]IA HOSPITAL BED. PT IS A&O 2-3, ENDORSING NO PAIN, BREATHING EVEN AND UNLABORED ON RA. TELE STAFF RECEIVED PT PROMPTLY, FOLLOWED BY PT'S FAMILY. BELONGINGS REVIEWED BY PECAN CLEANER. CHART GIVEN. SBAR AND REPORT GIVEN. PT ENDORSED IN STABLE CONDITION FOR KENNY.
--- NOTE | 2021-04-01 20:09 | NUR ---
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
[2021-04-01] MEDS ORDERED: HEPA50008 SQ (22:47)
[2021-04-01] MEDS ORDERED: methylPREDNISolone SOD SUCC IV (22:47)
[2021-04-02] VITALS: BP 113/51
--- NOTE | 2021-04-02 00:57 | NUR ---
REPORT GIVE TO JONELLE ARZATE OF [facility] FOR KENNY PT WILL GO TO ROOM 6630
--- NOTE | 2021-04-02 01:09 | NUR ---
[facility] CAME TO FORMULA CLERK PT AND BE TRANSFER TO [facility] ROOM 6824, PT IS AA/O X2 ON O2 3L SPO2 98% NO SIGN OF RESPIRATORY DISTRESS, WITH LATEST V/S 113/51 HR 69 RR 18 TEMP 98 NO PAIN COMPLAINT, PT HAVE LFA # 20 IV PATENT AND FLUSHED AND CAMPBELL CATHETER DRAINING YELLOW URINE OUTPUT 675 ML BAG WAS EMPTY BY TEAROOM HOST/HOSTESS, ALL NEEDS ATTENDED TO THE PT, BELONGINGS WAS GIVE TO THE EARLIER, PT ON ROUTE TO [facility]
--- NOTE | 2021-04-02 01:17 | NUR ---
BRAD PT SON SON WAS INFORMED THAT HIS FATHER IS ON ROUTE TO [facility]
== END 2021-04-02 01:00 | disposition short-term general hospital (02) | DRG 871 ==
LOC: ER 21:18 → TELE1 03-24 00:53 → ICU 03-26 15:24 → TELE-TD 04-01 19:06 → UNDODISIN 04-02 00:59
PROVIDERS: ADMIT Nurse Practitioner Acute Care; ATTEND Hospitalist
PROC: 05H933Z Insertion of Infusion Device into Right Brachial Vein, Percutaneous Approach (ICD-10-PCS; 2021-03-24)
PROC: 30233N1 Transfusion of Nonautologous Red Blood Cells into Peripheral Vein, Percutaneous Approach (ICD-10-PCS; 2021-03-25)
PROC: 05HC33Z Insertion of Infusion Device into Left Basilic Vein, Percutaneous Approach (ICD-10-PCS; 2021-03-25)
PROC: 5A09557 Assistance with Respiratory Ventilation, Greater than 96 Consecutive Hours, Continuous Positive Airway Pressure (ICD-10-PCS; 2021-03-26)
PROC: 5A1D70Z Performance of Urinary Filtration, Intermittent, Less than 6 Hours Per Day (ICD-10-PCS; 2021-03-29)
PROC: 05HM33Z Insertion of Infusion Device into Right Internal Jugular Vein, Percutaneous Approach (ICD-10-PCS; 2021-03-29)
PROC: B543ZZA Ultrasonography of Right Jugular Veins, Guidance (ICD-10-PCS; 2021-03-29)
PROC: 0DJ08ZZ Inspection of Upper Intestinal Tract, Via Natural or Artificial Opening Endoscopic (ICD-10-PCS; principal; 2021-03-31)
DX: A41.9 Sepsis, unspecified organism (principal); I21.4 Non-ST elevation (NSTEMI) myocardial infarction; J18.9 Pneumonia, unspecified organism; J96.01 Acute respiratory failure with hypoxia; J96.02 Acute respiratory failure with hypercapnia; N17.0 Acute kidney failure with tubular necrosis; C95.90 Leukemia, unspecified not having achieved remission; E44.1 Mild protein-calorie malnutrition; I13.0 Hypertensive heart and chronic kidney disease with heart failure and stage 1 through stage 4 chronic kidney disease, or unspecified chronic kidney disease; J98.11 Atelectasis; J90 Pleural effusion, not elsewhere classified; I50.9 Heart failure, unspecified; Z20.822 Contact with and (suspected) exposure to COVID-19; E11.22 Type 2 diabetes mellitus with diabetic chronic kidney disease; Z90.49 Acquired absence of other specified parts of digestive tract; Z77.090 Contact with and (suspected) exposure to asbestos; E78.5 Hyperlipidemia, unspecified; E66.9 Obesity, unspecified; D69.6 Thrombocytopenia, unspecified; I25.10 Atherosclerotic heart disease of native coronary artery without angina pectoris; N40.1 Benign prostatic hyperplasia with lower urinary tract symptoms; R33.8 Other retention of urine; I35.0 Nonrheumatic aortic (valve) stenosis; K26.9 Duodenal ulcer, unspecified as acute or chronic, without hemorrhage or perforation; N18.9 Chronic kidney disease, unspecified; F32.A Depression, unspecified; D50.9 Iron deficiency anemia, unspecified; Z68.28 Body mass index [BMI] 28.0-28.9, adult; N28.1 Cyst of kidney, acquired; M48.00 Spinal stenosis, site unspecified; M77.9 Enthesopathy, unspecified; Z87.09 Personal history of other diseases of the respiratory system; I70.8 Atherosclerosis of other arteries; K40.20 Bilateral inguinal hernia, without obstruction or gangrene, not specified as recurrent; K80.20 Calculus of gallbladder without cholecystitis without obstruction
CPT/HCPCS: 36410; 36415; 36600; 71045-TC; 76770-TC; 76856-TC; 80048-TC; 80053-TC; 80061-TC; 80076-TC; 81001; 82272-TC; 82570-TC; 82728-TC; 82803-TC; 82962-TC; 83540-TC; 83605-TC; 83735-TC; 83880; 83970; 84100-TC; 84155-TC; 84300-TC; 84439-TC; 84443-TC; 84484-TC; 85025-TC; 85610-TC; 85730-TC; 86706; 86850-TC; 87040-TC; 87081-TC; 87086-TC; 87340; 90935-TC; 92526; 92611-TC; 93307-TC; 94660; 94760-TC; 94799-TC; A6403; C1750; C9113; C9803; G0378; J0456; J0692; J0696; J1644; J1650; J1815; J1940; J2597; J2704; J2916; J2920; J2930; J3370; J3490; J7030; J7050; J7060; P9016; U0003